=== PATIENT | male | born 1990 | race Caucasian/White ===

== ENCOUNTER 2021-11-26 20:07 | Inpatient (IN) | payer OTHER ==
[~2021-11-26] VITALS: Ht 170.2 cm; Wt 78.1 kg
[2021-11-26] MEDS ORDERED: ONDANSETRON HCL 4 MG/2 ML VIAL IVP ONE (20:30)
[2021-11-26] MEDS ORDERED: SODIUM CHLORIDE 0.9% 1,000 ML IV ONE ×2 (20:30→21:30)
[2021-11-26 20:59] LABS: BASOPHILS % (AUTO) 0.2 % (0.0-2.0); EOSINOPHILS % (AUTO) 0.2 % (1.0-6.0); HEMATOCRIT 48.4 % (41-53); HEMOGLOBIN 16.1 g/dL (13.5-17.5); LYMPHOCYTES # (AUTO) 1.4 K/uL (1.0-4.8); MEAN CORPUSCULAR HEMOGLOBIN 29.4 pg (26.0-34.0); MEAN CORPUSCULAR HGB CONC 33.3 G/dL (31.0-37.0); MEAN CORPUSCULAR VOLUME 88 fL (80-100); MONOCYTES # (AUTO) 0.5 K/uL (0.1-1.0); MONOCYTES % (AUTO) 4.7 % (2.0-9.0); NEUTROPHILS # (AUTO) 7.8 K/uL (1.8-7.7); NEUTROPHILS % (AUTO) 80.9 % (40.0-70.0); PLATELET COUNT (AUTO) 289 K/uL (150-450); RED BLOOD CELL COUNT(AUTO) 5.49 MIL/uL (4.50-5.90); RED CELL DISTRIBUTION WIDTH 13.7 % (11.5-14.5)
[2021-11-26 21:03] LABS: COVID AG,FIA SOURCE NASOPHARYNGEAL
[2021-11-26 21:06] LABS: ANION GAP 11 mmol/L (8-16); CALCIUM, TOTAL 9.2 mg/dL (8.8-10.5); CARBON DIOXIDE 29 mmol/L (22-29); CHLORIDE 100 mmol/L (98-107); CREATININE 0.84 mg/dL (0.60-1.30); GLOMERULAR FILTR. RATE CALC > 60 mL/min (>60); GLUCOSE,RANDOM 106 mg/dL (70-110); POTASSIUM 4.5 mmol/L (3.5-5.1); SODIUM SERUM 140 mmol/L (136-145); UREA NITROGEN, BLOOD 15 mg/dL (7-18)
[2021-11-26 21:13] LABS: ACETAMINOPHEN < 2 mcg/mL (10-30); ALANINE AMINOTRANSFERASE 181 U/L (12-78); ALBUMIN 4.2 g/dL (3.4-5.0); ALKALINE PHOSPHATASE 84 U/L (46-116); ASPARTATE AMINOTRANSFERASE 118 U/L (15-37); BILIRUBIN,TOTAL 1.3 mg/dL (0.1-1.0)
[2021-11-26 21:17] LABS: SALICYLATE < 2.8 mg/dL (2.8-20.0)
[2021-11-26] MEDS ORDERED: MAGNESIUM HYDROXIDE SUSPENSION 30 ML UDCUP PO PRN (21:30)
[2021-11-26 23:25] VITALS: BP 103/66
[2021-11-26] MEDS: LORazepam 2 MG/ML VIAL IVP PRN (23:36)
[2021-11-27 02:35] VITALS: BP 100/51
[2021-11-27 03:31] VITALS: BP 102/74
[2021-11-27 04:38] VITALS: BP 101/56
[2021-11-27] MEDS: LORazepam 2 MG/ML VIAL IVP PRN ×3 (06:00→18:14)
[2021-11-27 08:12] VITALS: BP 112/76
[2021-11-27] MEDS: FAMOTIDINE 20 MG TABLET PO SCH ×3 (09:23→23:05)
[2021-11-27 16:00] VITALS: BP 109/73
[2021-11-27] MEDS: ONDANSETRON HCL 4 MG/2 ML VIAL IVP PRN ×2 (16:35→23:05)
[2021-11-27] MEDS: ChlordiazePOXIDE HCL 25 MG CAPSULE PO SCH ×3 (16:36→23:06)
[2021-11-27] MEDS: ACETAMINOPHEN 325 MG TABLET PO PRN (16:40)
[2021-11-27 20:58] VITALS: BP 104/59
[2021-11-27] MEDS ORDERED: ChlordiazePOXIDE HCL 25 MG CAPSULE PO SCH (21:00)
[2021-11-28] VITALS (8 sets, daily range): BP systolic 100–157; BP diastolic 53–91
[2021-11-28] MEDS: ChlordiazePOXIDE HCL 25 MG CAPSULE PO SCH ×3 (08:52→20:48)
[2021-11-28] MEDS: FAMOTIDINE 20 MG TABLET PO SCH ×2 (08:52→20:48)
[2021-11-28] MEDS: LORazepam 2 MG/ML VIAL IVP PRN ×2 (12:37→19:14)
[2021-11-28] MEDS: ONDANSETRON HCL 4 MG/2 ML VIAL IVP PRN (15:21)
[2021-11-28] MEDS: ACETAMINOPHEN 325 MG TABLET PO PRN (20:47)
[2021-11-28] MEDS: ZOLPIDEM TARTRATE 5 MG TABLET PO PRN (20:52)
[2021-11-29] MEDS: LORazepam 2 MG/ML VIAL IVP PRN ×3 (01:45→18:27)
[2021-11-29] MEDS: ACETAMINOPHEN 325 MG TABLET PO PRN ×2 (01:46→20:22)
[2021-11-29] MEDS ORDERED: CALCIUM CARBONATE 500 MG CHEWABLE TABLET CHEW PRN (04:00)
[2021-11-29] MEDS: ChlordiazePOXIDE HCL 25 MG CAPSULE PO SCH ×3 (08:12→20:22)
[2021-11-29] MEDS: FAMOTIDINE 20 MG TABLET PO SCH ×2 (08:12→20:22)
[2021-11-29] MEDS: ONDANSETRON HCL 4 MG/2 ML VIAL IVP PRN ×2 (08:12→20:19)
[2021-11-29 08:20] VITALS: BP 112/61
[2021-11-29] MEDS ORDERED: LOPERAMIDE HCL 2 MG CAPSULE PO PRN (10:30)
[2021-11-29] MEDS: MAGNESIUM SULFATE 2 GM, MVI, ADULT NO.1 WITH VIT K 10 ML, THIAMINE 100 MG, FOLIC ACID 1... IV SCH ×5 (11:29)
[2021-11-29 12:06] VITALS: BP 116/68
[2021-11-29 16:33] VITALS: BP 128/61
[2021-11-29 19:56] VITALS: BP 105/67
[2021-11-29] MEDS: ZOLPIDEM TARTRATE 5 MG TABLET PO PRN (20:23)
[2021-11-29 23:59] VITALS: BP 97/47
[2021-11-30] MEDS: LORazepam 2 MG/ML VIAL IVP PRN (05:02)
[2021-11-30 05:04] VITALS: BP 110/62
[2021-11-30 07:29] LABS: AMPHET/METH SCREEN,URINE NEGATIVE (NEGATIVE); BARBITURATE SCREEN, URINE NEGATIVE (NEGATIVE); BENZODIAZEPINES SCREEN,URINE POSITIVE (NEGATIVE); CANNABINOID SCREEN,URINE NEGATIVE (NEGATIVE); COCAINE SCREEN,URINE NEGATIVE (NEGATIVE); METHADONE SCREEN, URINE NEGATIVE (NEGATIVE); OPIATE SCREEN,URINE NEGATIVE (NEGATIVE)
[2021-11-30 07:30] LABS: PHENCYCLIDINE SCREEN,URINE NEGATIVE (NEGATIVE)
[2021-11-30] MEDS: ChlordiazePOXIDE HCL 25 MG CAPSULE PO SCH (08:08)
[2021-11-30] MEDS: FAMOTIDINE 20 MG TABLET PO SCH ×2 (08:08→20:05)
[2021-11-30 09:00] VITALS: BP 109/67
[2021-11-30] MEDS: MAGNESIUM SULFATE 2 GM, MVI, ADULT NO.1 WITH VIT K 10 ML, THIAMINE 100 MG, FOLIC ACID 1... IV SCH ×5 (10:19)
[2021-11-30] MEDS ORDERED: IBUPROFEN 400 MG TABLET PO PRN (14:30)
[2021-11-30 16:00] VITALS: BP 106/58
[2021-11-30] MEDS: ACETAMINOPHEN 325 MG TABLET PO PRN (20:05)
[2021-11-30] MEDS: ZOLPIDEM TARTRATE 5 MG TABLET PO PRN (20:05)
[2021-11-30 20:34] VITALS: BP 119/60
[2021-11-30] MEDS ORDERED: ChlordiazePOXIDE HCL 25 MG CAPSULE PO SCH (21:00)
[2021-12-01 00:13] VITALS: BP 119/68
[2021-12-01] MEDS: ACETAMINOPHEN 325 MG TABLET PO PRN (01:29)
[2021-12-01 04:51] VITALS: BP 96/69
== END 2021-12-01 09:35 | DRG 897 ==
LOC: EMS 20:10 → 6S 21:00 → UNDOADMIN 22:16 → 6S 22:16
PROVIDERS: ADMIT Internal Medicine; ATTEND Internal Medicine
DX: F11.20 Opioid dependence, uncomplicated (principal); Z20.822 Contact with and (suspected) exposure to COVID-19; F19.10 Other psychoactive substance abuse, uncomplicated; R74.01 Elevation of levels of liver transaminase levels; F17.210 Nicotine dependence, cigarettes, uncomplicated
CPT/HCPCS: 80053; 83735; 85025; 93005; 99285; G0480; G0481; J2060; J2405; J3411; J3475; J3490; J7030